=== PATIENT | female | born 1960 | race Caucasian/White ===

== ENCOUNTER 2020-11-15 22:44 | Emergency (ER) | payer BC ==
[2020-11-15] MEDS ORDERED: Sodium Chloride 0.9% 1000 ML 1,000 ML IV STA (23:33)
[2020-11-15] MEDS ORDERED: TORAdol 30 mg Injection IV ONE (23:33)
[2020-11-15] MEDS ORDERED: TYLENOL 325 MG PO ONE (23:33)
[2020-11-15 23:54] LABS: Hematocrit 36.4 % (35-47); Hemoglobin 11.7 gm/dl (12.0-16.0); Mean Corpuscular Hemoglobin 29.3 pg (26-32); Mean Corpuscular Hgb Concent. 32.1 g/dl (32-36); Mean Platelet Volume 7.9 fl (7.5-11.0); Platelet Count 177 K/mm3 (150-450); Red Cell Distribution Width 13.7 % (11.5-14.0); White Blood Count 4.3 K/mm3 (4.0-10.5)
[2020-11-16 00:06] LABS: ALBUMIN 3.9 g/dL (3.5-5.0); ALKALINE PHOSPHATASE 97 U/L (38-126); ANION GAP 12.4 MEQ/L (5-15); BLOOD UREA NITROGEN 12 mg/dL (7-17); CHLORIDE 99 mmol/L (98-107); Calcium 8.3 mg/dL (8.4-10.2); Carbon Dioxide 26 mmol/L (22-30); Creatinine 1 0.66 mg/dL (0.52-1.04); EST GLOMERULAR FILTRATION RATE > 60.0 ML/MIN; Glucose 134 mg/dL (74-106); Potassium 3.6 mmol/L (3.5-5.1); SGOT/AST 145 U/L (14-36); SGPT/ALT 119 U/L (0-35); SODIUM 134 mmol/L (137-145)
[2020-11-16] MEDS ORDERED: Sodium Chloride 0.9% 1000 ML 1,000 ML ONE (00:39)
[2020-11-16] MEDS ORDERED: TYLENOL 325 MG ONE (00:39)
[2020-11-16] MEDS ORDERED: Klor Con 10 MEQ PO ONE ×2 (00:39→00:45)
[2020-11-16] MEDS ORDERED: TORAdol 30 mg Injection ONE (00:39)
--- NOTE | 2020-11-16 00:41 | ERPHSYRPT ---
- History of Present Illness Time Seen by Provider: 11/15/20 23:30 Source: patient Exam Limitations: no limitations Patient Subjective Stated Complaint: pt states she has been feeling unwell since last saturday and was diagnosed with covid on saturday. Triage Nursing Assessment: pt alert and oriented, answers questions approp. pt ambulatory with steadyg ait ntoed. respirations nonlabored with coarse lung sound to lt. frequent hacking cough noted. skin hot and dry. Physician History: Patient is a 60-year-old female presents to our ED with complaints of feeling unwell. Patient states she is Covid positive. Patient states that she has been feeling unwell for 4 days. She was diagnosed with Covid on Saturday. Patient is mildly nauseous. No vomiting. Patient has not been eating well. Decreased p.o. No diarrhea. No rash. Patient febrile today. She took ibuprofen at approximately 4 PM. Timing/Duration: day(s) (4 days.) Severity: moderate Modifying Factors: Improves With: nothing Associated Symptoms: nausea, No vomiting, No shortness of breath, No diaphoresis Hx Tetanus, Diphtheria Vaccination/Date Given: No Hx Influenza Vaccination/Date Given: No Hx Pneumococcal Vaccination/Date Given: No Immunizations Up to Date: No Travel Risk - International Travel Have you traveled outside of the country in past 3 weeks: No - Coronavirus Screening Are you exhibiting any of the following symptoms?: Yes Symptoms: Fever, Cough: New Onset, Loss of Taste or Smell, Headaches/Body Aches/Fatigue - Vaccine Status Have you recieved a Covid-19 vaccination: No - Review of Systems Constitutional: No Symptoms, No Fever, No Chills Eyes: No Symptoms Ears, Nose, & Throat: No Symptoms Respiratory: No Symptoms, No Cough, No Dyspnea Cardiac: No Symptoms, No Chest Pain, No Edema, No Syncope Abdominal/Gastrointestinal: No Symptoms, No Abdominal Pain, No Nausea, No Vomiting, No Diarrhea Genitourinary Symptoms: No Symptoms, No Dysuria Musculoskeletal: No Symptoms, No Back Pain, No Neck Pain Skin: No Symptoms, No Rash Neurological: No Symptoms, No Dizziness, No Focal Weakness, No Sensory Changes Psychological: No Symptoms Endocrine: No Symptoms Hematologic/Lymphatic: No Symptoms Immunological/Allergic: No Symptoms All Other Systems: Reviewed and Negative - Past Medical History GI Medical History: Polyps Other Medical History: hx tubal , shingles - Past Surgical History Past Surgical History: Yes Other Surgical History: surgery for tubal , uterine polyp removal - Social History Smoking Status: Never smoker Exposure to second hand smoke: No Drug Use: none Patient Lives Alone: No - Nursing Vital Signs Nursing Vital Signs: Initial Vital Signs Temperature 102.3 F 11/15/20 23:13 Pulse Rate 101 H 11/15/20 23:13 Respiratory Rate 18 11/15/20 23:13 Blood Pressure 136/97 11/15/20 23:13 O2 Sat by Pulse Oximetry 95 11/15/20 23:13 - Physical Exam General Appearance: no apparent distress, alert Eye Exam: PERRL/EOMI, eyes nml inspection Ears, Nose, Throat Exam: normal ENT inspection, TMs normal, pharynx normal, moist mucous membranes Neck Exam: normal inspection, non-tender, supple, full range of motion Respiratory Exam: normal breath sounds, lungs clear, airway intact, No chest tenderness, No respiratory distress Cardiovascular Exam: regular rate/rhythm, normal heart sounds, normal peripheral pulses Gastrointestinal/Abdomen Exam: soft, normal bowel sounds, No tenderness, No mass Back Exam: normal inspection, normal range of motion, No CVA tenderness, No vertebral tenderness Extremity Exam: normal inspection, normal range of motion, pelvis stable Neurologic Exam: alert, oriented x 3, cooperative, normal mood/affect, nml cerebellar function, nml station & gait, sensation nml, No motor deficits Skin Exam: normal color, warm, dry, No rash Lymphatic Exam: No adenopathy SpO2 Interpretation: normal SpO2: 97 O2 Delivery: Room Air - Course Nursing assessment & vital signs reviewed: Yes Ordered Tests: Active Orders 24 hr Category Date Time Status IV Insertion STAT Care 11/15/20 23:33 Active CHEST 1 VIEW (PORTABLE) Stat Exams 11/15/20 23:33 Taken CBC W DIFF Stat Lab 11/15/20 23:40 Completed CMP Stat Lab 11/15/20 23:40 Completed Manual Differential NC Stat Lab 11/15/20 23:40 Completed UA W/RFX UR CULTURE Stat Lab 11/16/20 00:45 Completed Medication Summary Discontinued Medications Generic Name Dose Route Start Last Admin Trade Name Freq PRN Reason Stop Dose Admin Acetaminophen 975 mg 11/15/20 23:33 11/16/20 00:44 Tylenol 325 Mg PO 11/15/20 23:34 975 mg STAT ONE Administration Acetaminophen Confirm 11/16/20 00:39 Tylenol 325 Mg Administered 11/16/20 00:40 Dose 975 mg .ROUTE .STK-MED ONE Dexamethasone Sodium Phosphate 6 mg 11/16/20 02:34 11/16/20 02:51 Decadron 10mg Inj. IV 11/16/20 02:35 6 mg STAT ONE Administration Dexamethasone Sodium Phosphate Confirm 11/16/20 02:43 Decadron 10mg Inj. Administered 11/16/20 02:44 Dose 10 mg .ROUTE .STK-MED ONE Sodium Chloride 1,000 mls @ 999 mls/hr 11/15/20 23:33 11/16/20 00:45 Sodium Chloride 0.9% 1000 Ml IV 11/16/20 00:33 999 mls/hr .Q1H1M STA Administration Sodium Chloride Confirm 11/16/20 00:39 Sodium Chloride 0.9% 1000 Ml Administered 11/16/20 00:40 Dose 1,000 mls @ ud .ROUTE .STK-MED ONE Ketorolac Tromethamine 30 mg 11/15/20 23:33 11/16/20 00:45 Toradol 30 Mg Injection IV 11/15/20 23:34 30 mg STAT ONE Administration Ketorolac Tromethamine Confirm 11/16/20 00:39 Toradol 30 Mg Injection Administered 11/16/20 00:40 Dose 30 mg .ROUTE .STK-MED ONE Potassium Chloride 40 meq 11/16/20 00:39 11/16/20 00:57 Klor Con 10 Meq PO 11/16/20 00:40 40 meq STAT ONE Administration Potassium Chloride Confirm 11/16/20 00:45 Klor Con 10 Meq Administered 11/16/20 00:46 Dose 20 meq PO .STK-MED ONE Lab/Rad Data: Laboratory Result Diagrams 11/15/20 23:40 11/15/20 23:40 Laboratory Results 11/16/20 11/15/20 11/15/20 Range/Units 00:45 23:40 23:40 WBC 4.3 (4.0-10.5) K/mm3 RBC 4.00 L (4.1-5.4) M/mm3 Hgb 11.7 L (12.0-16.0) gm/dl Hct 36.4 (35-47) % MCV 91.0 (78-100) fl MCH 29.3 (26-32) pg MCHC 32.1 (32-36) g/dl RDW 13.7 (11.5-14.0) % Plt Count 177 (150-450) K/mm3 MPV 7.9 (7.5-11.0) fl Segmented Neutrophils 70 H (36.0-66.0) % Band Neutrophils 4 H (0.0-2.0) % Lymphocytes (Manual) 17 L (24-44) % Monocytes (Manual) 8 (0.0-12.0) % Eosinophils (Manual) 1 (0.00-3.0) % Platelet Estimate NORMAL (NORMAL) RBC Morphology NORMAL Sodium 134 L (137-145) mmol/L Potassium 3.6 (3.5-5.1) mmol/L Chloride 99 (98-107) mmol/L Carbon Dioxide 26 (22-30) mmol/L Anion Gap 12.4 (5-15) MEQ/L BUN 12 (7-17) mg/dL Creatinine 0.66 (0.52-1.04) mg/dL Estimated GFR > 60.0 ML/MIN Glucose 134 H (74-106) mg/dL Calcium 8.3 L (8.4-10.2) mg/dL Total Bilirubin 0.20 (0.2-1.3) mg/dL AST 145 H (14-36) U/L ALT 119 H (0-35) U/L Alkaline Phosphatase 97 (38-126) U/L Serum Total Protein 7.0 (6.3-8.2) g/dL Albumin 3.9 (3.5-5.0) g/dL Urine Color YELLOW (YELLOW) Urine Appearance CLEAR (CLEAR) Urine pH 6.0 (5-6) Ur Specific Lacey 1.010 (1.005-1.025) Urine Protein NEGATIVE (Negative) Urine Ketones NEGATIVE (NEGATIVE) Urine Blood NEGATIVE (0-5) Kip/ul Urine Nitrite NEGATIVE (NEGATIVE) Urine Bilirubin NEGATIVE (NEGATIVE) Urine Urobilinogen NEGATIVE (0-1) mg/dL Ur Leukocyte Esterase NEGATIVE (NEGATIVE) Urine WBC (Auto) NONE (0-5) /HPF Urine RBC (Auto) NONE (0-2) /HPF U Epithel Cells (Auto) NONE (FEW) /HPF Urine Bacteria (Auto) NONE SEEN (NEGATIVE) /HPF Urine Mucus (Auto) SLIGHT (NEGATIVE) /HPF Urine Culture Reflexed NO (NO) Urine Glucose NEGATIVE (NEGATIVE) mg/dL - Progress Progress: improved Progress Note: Patient nauseous decreased p.o. Potassium borderline low at 3.6. Calcium supplementation provided. Patient was febrile upon arrival. Tylenol and Toradol provided. Patient received a dose of Zofran and IV fluids. Chest x-ray transaminitis. While in our ED patient was observed he hypoxic on the telemetry monitor. A dose of 6 mg Decadron administered. 11/16/20 02:35 11/16/20 04:08 Reassessed. She feels well. Patient ambulated in our ED. Patient maintained excellent O2 saturations in the high 90s. Chest x-ray revealed bibasilar opacities however favored to represent scarring and atelectasis. Atypical infection could do similar appearance in the appropriate clinical setting. Occasion for antibiotics at this time. Patient is Covid positive. She will maintain in quarantine. Patient does not have a primary care physician. Our no doc for today is Dr. Sanchez. Patient referred to Dr. Aashish Sanchez for follow-up. Patient agrees to follow-up with her primary care doctor within 48 hours for reevaluation. Patient states is ready for discharge he voices no other complain ts at this time. 11/16/20 04:09 11/16/20 04:10 Counseled pt/family regarding: lab results, diagnosis, rad results - Departure Departure Disposition: Home Clinical Impression: COVID-19, Transaminitis, Fever, Viral syndrome Condition: Stable Critical Care Time: No Referrals: DOCTOR,NO FAMILY [Primary Care Provider] - AASHISH SANCHEZ [ACTIVE STAFF] - Additional Instructions: Discharge/Care Plan BIBI YEPEZ was seen on 11/16/20 in the Emergency Room. The patient was co unseled regarding Diagnosis,Lab results, Imaging studies, need for follow up and when to return to the Emergency Room. Prescriptions given: Discharge Note I have spoken with the patient and/or caregivers. I have explained the patient's condition, diagnosis and treatment plan based on the information available to me at this time. I have answered the patient's and/or caregiver's questions and addressed any concerns. The patient and/or caregivers have as good understanding of the patient's diagnosis, condition and treatment plan as can be expected at this point. The vital signs have been stable. The patient's condition is stable and appropriate for discharge from the emergency department. The patient will pursue further outpatient evaluation with the primary care physician or other designated or consulting physician as outlined in the discharge instructions. The patient and/or caregivers are agreeable to this plan of care and follow-up instructions have been explained in detail. The patient and/or caregivers have received these instruction. The patient/and or caregivers are aware that any significant change in condition or worsening of symptoms should prompt an immediate return to this or the closest emergency department or call 911.
[2020-11-16 01:20] LABS: BAND 4 % (0.0-2.0); Eosinophil 1 % (0.00-3.0); Lymphocytes 17 % (24-44); Monocyte 8 % (0.0-12.0); Neutrophils 70 % (36.0-66.0); Platelet Estimate NORMAL (NORMAL); Total Cells Counted 100
[2020-11-16 01:22] LABS: Appearance CLEAR (CLEAR); Bilirubin NEGATIVE (NEGATIVE); Blood NEGATIVE Ery/ul (0-5); Glucose NEGATIVE (NEGATIVE); Ketones NEGATIVE (NEGATIVE); Leukocyte Esterase NEGATIVE (NEGATIVE); Mucus SLIGHT /HPF (NEGATIVE); Nitrite NEGATIVE (NEGATIVE); Protein,Urine Dip NEGATIVE (Negative); Urobilinogen NEGATIVE mg/dL (0-1)
[2020-11-16 01:27] LABS: Bacteria NONE SEEN /HPF (NEGATIVE)
[2020-11-16] MEDS ORDERED: DECADRON 10MG INJ. IV ONE (02:34)
[2020-11-16] MEDS ORDERED: DECADRON 10MG INJ. ONE (02:43)
[2020-11-16 04:37] VITALS: BP 119/74; PULSE 70; O2SAT 94
--- NOTE | 2020-11-17 05:28 | XRAY ---
Exam: AP upright portable chest film from 11/15/2020. Comparison: None. Indication: Cough. History of prior Covid infection. Findings: The transverse heart size is normal. There is mild tortuosity of both the ascending and proximal descending thoracic aorta. The radha and mediastinal structures appear unremarkable. Minimal increased markings are seen at the medial right lung base and the peripheral left lung base. This is relatively nonspecific, and could be due to prior scarring/atelectasis. In the appropriate clinical setting, atypical infection could have a similar appearance. The remainder of the lung east appears clear. There is no pneumothorax or pleural fluid. Minimal convexity of the mid thoracic spine toward the right is seen. Impression: 1. Minimal increased markings are seen in both lung bases, as discussed above. This may relate to mild chronic bibasilar interstitial scarring/atelectasis. However, atypical infection/pneumonia could have a similar appearance in the appropriate clinical setting. 2. No other acute cardiopulmonary disease is seen.
== END 2020-11-16 04:58 | disposition home or self-care (01) ==
LOC: ED 22:44
DX: U07.1 COVID-19 (principal); R74.01 Elevation of levels of liver transaminase levels; R50.9 Fever, unspecified; B34.9 Viral infection, unspecified
CPT/HCPCS: 36000; 36415; 71045; 80053; 81001; 85025; 96374; 99284; J1100; J1885; A9270-GY